=== PATIENT | female | born 1965 | race Caucasian/White ===

== ENCOUNTER 2021-09-26 09:05 | Emergency (ER) | payer SELFPAY ==
[~2021-09-26] VITALS: Ht 160 cm; Wt 79.5 kg
[2021-09-26] MEDS ORDERED: FAMOTIDINE 20 MG/2 ML VIAL IVP ONE (09:30)
[2021-09-26] MEDS ORDERED: MECLIZINE HCL 12.5 MG TABLET. PO ONE (09:30)
[2021-09-26] MEDS ORDERED: IV NORMAL SALINE 1000ML BAG 1,000 ML IV ONE (09:30)
--- NOTE | 2021-09-26 09:47 | RAD ---
Single view of the chest. 09/26/2021 9:33 AM Indication: Reason: dizziness Comparison: None Findings: There is no focal consolidation. There is no pleural effusion or pneumothorax. The cardiome diastinal silhouette and pulmonary vasculature are within normal limits. No acute osseous abnormaliti es are seen. Impression: No evidence of acute cardiopulmonary process. Electronically signed by: To Ga MD (09/26/2021 9:45 AM) [id number]
[2021-09-26 09:52] LABS: BASO % 0 % (0-3); CALCIUM 8.1 mg/dL (8.5-10.1); EOS % 0 % (0-3); GFR 56.9; HEMATOCRIT 43.1 % (36.0-47.0); HEMOGLOBIN 13.9 g/dL (12.0-15.5); LYMPH % 15 % (24-48); MEAN CORPUSCULAR HEMOGLOBIN 29 pg (25-35); MEAN CORPUSCULAR HGB CONC 32 g/dL (31-37); MEAN CORPUSCULAR VOLUME 90 fL (79-100); MONO # 0.6 x10^3/uL (0.0-1.1); MONO % 10 % (0-9); NEUT % 75 % (31-73); PLATELET COUNT 157 x10^3/uL (140-400); POTASSIUM 4.2 mmol/L (3.5-5.1); RED BLOOD COUNT 4.81 x10^6/uL (3.50-5.40); RED CELL DISTRIBUTION WIDTH 14.3 % (11.5-14.5); WHITE BLOOD COUNT 6.6 x10^3/uL (4.0-11.0)
[2021-09-26 09:58] LABS: ALBUMIN 3.1 g/dL (3.4-5.0); ALBUMIN/GLOBULIN RATIO 0.9 (1.0-1.7); MAGNESIUM 1.6 mg/dL (1.8-2.4); TOTAL BILIRUBIN 0.4 mg/dL (0.2-1.0); TOTAL PROTEIN 6.6 g/dL (6.4-8.2)
--- NOTE | 2021-09-26 10:00 | EKG ---
[facility] [address] [place] [address] Test Date: 2021-09-26 Test Time: 09:14:39 Pat Name: BEBE HILTON Department: Room: Gender: F Transition Coach: : 1965 Requested By: MARIA INES ZARATE Order Number: [id number] Reading MD: Luis Young MD Measurements Intervals [place] Rate: 74 P: 44 NV: 168 QRS: -30 QRSD: 98 T: 42 QT: 410 QTc: 461 Interpretive Statements SINUS RHYTHM CONSIDER LVH Electronically Signed On 09-30-2021 8:40:58 TINTER PHOTOGRAPH by Luis Young MD
--- NOTE | 2021-09-26 10:15 | PHYS DOC ---
Past Medical History Past Medical History: CAD Past Surgical History: Tonsillectomy Smoking Status: Current Every Day Smoker Additional Information: vapes Alcohol Use: None General Adult EDM: Chief Complaint: NEAR SYNCOPE HPI: HPI: Patient is a 56 year old female with a history of CAD and 2 stents, who presents to the ED today complaining of dizziness. Patient states she was at work, she felt dizzy and lightheaded. She states she almost passed out but did not. Denies falling, she states she did not have any breakfast this morning. Denies any chest pain or shortness of breath. She states her symptoms have actually improved in the ED. She states she has had diarrhea, nausea and vomit ing for 2 weeks. She states she has been taking Pepto-Bismol and her stools are dark. Denies any abdominal pain. Review of Systems: Review of Systems: Constitutional: Denies fever or chills. [] Eyes: Denies change in visual acuity. [] HENT: Denies nasal congestion or sore throat. [] Respiratory: Denies cough or shortness of breath. [] Cardiovascular: Denies chest pain or edema. [] GI: Reports nausea, vomiting, diarrhea, denies abdominal pain : Denies dysuria. [] Musculoskeletal: Denies back pain or joint pain. [] Integument: Denies rash. [] Neurologic: Reports dizziness, lightheadedness.. Denies headache, focal weakness or sensory changes. [] Psychiatric: Denies depression or anxiety. [] Heart Score: C/O Chest Pain: N/A Risk Factors: Risk Factors: DM, Current or recent (<one month) smoker, HTN, HLP, family history of CAD, obesity. Risk Scores: Score 0 - 3: 2.5% MACE over next 6 weeks - Discharge Home Score 4 - 6: 20.3% MACE over next 6 weeks - Admit for Clinical Observation Score 7 - 10: 72.7% MACE over next 6 weeks - Early Invasive Strategies Current Medications: Current Medications Medications (Trade) Dose Ordered Sig/Kellie Start Time Stop Time Status Last Admin Dose Admin Famotidine (Pepcid Vial) 20 mg 1X ONCE 09/26/21 09:30 2 09:31 DC 09/26/21 09:41 20 MG Meclizine HCl (Antivert) 12.5 mg 1X ONCE 09/26/21 09:30 09/26/21 09:31 DC 09/26/21 09:41 12.5 MG Sodium Chloride 1,000 ml @ 1,000 mls/hr 1X ONCE 09/26/21 09:30 09/26/21 10:29 09/26/21 09:41 1,000 MLS/HR Allergies: Allergies: Allergies Coded Allergies Type Severity Reaction Last Updated Verified codeine Allergy Intermediate "I BLEED INTERNALLY" 09/26/21 Yes Physical Exam: PE: Constitutional: Well developed, well nourished, no acute distress, non-toxic appearance. [] HENT: Normocephalic, atraumatic, bilateral external ears normal, oropharynx moist, no oral exudates, nose normal. [] Eyes: PERRLA, EOMI, conjunctiva normal, no discharge. [] Neck: Normal range of motion, no tenderness, supple, no stridor. [] Cardiovascular:Heart rate regular rhythm, no murmur [] Lungs & Thorax: Bilateral breath sounds clear to auscultation [] Abdomen: Bowel sounds normal, soft, no tenderness, no masses, no pulsatile masses. [] Skin: Warm, dry, no erythema, no rash. [] Back: No tenderness, no CVA tenderness. [] Extremities: No tenderness, no cyanosis, no clubbing, ROM intact, no edema. [] Neurologic: Alert and oriented X 3, normal motor function, normal sensory function, no focal deficits noted. Cranial nerves II through XII intact Psychologic: Affect normal, judgement normal, mood normal. [] Current Patient Data: Labs: Laboratory Tests Test 09/26/21 09:23 09/26/21 09:46 Sodium Level 142 mmol/L (136-145) Potassium Level 4.2 mmol/L (3.5-5.1) Chloride Level 104 mmol/L (98-107) Carbon Dioxide Level 28 mmol/L (21-32) Anion Gap 10 (6-14) Blood Urea Nitrogen 17 mg/dL (7-20) Creatinine 1.0 mg/dL (0.6-1.0) Estimated GFR (Cockcroft-Gault) 56.9 BUN/Creatinine Ratio 17 (6-20) Glucose Level 173 mg/dL (70-99) H Calcium Level 8.1 mg/dL (8.5-10.1) L Magnesium Level 1.6 mg/dL (1.8-2.4) L Total Bilirubin 0.4 mg/dL (0.2-1.0) Aspartate Amino Transferase (AST) 20 U/L (15-37) Alanine Aminotransferase (ALT) 35 U/L (14-59) Alkaline Phosphatase 84 U/L (46-116) Troponin I High Sensitivity 5 ng/L (4-50) NB-Jmg-C-Type Natriuretic Peptide 51 pg/mL (0-124) Total Protein 6.6 g/dL (6.4-8.2) Albumin 3.1 g/dL (3.4-5.0) L Albumin/Globulin Ratio 0.9 (1.0-1.7) L Lipase 204 U/L (73-393) Thyroid Stimulating Hormone (TSH) 2.246 uIU/mL (0.358-3.74) SARS-CoV-2 Antigen (Rapid) Negative (NEGATIVE) Laboratory Tests 09/26/21 09:23 Vital Signs: Vital Signs Date Time Temp Pulse Resp B/P (MAP) Pulse Ox O2 Delivery O2 Flow Rate FiO2 09/26/21 09:09 98.1 79 18 141/68 (92) 99 Room Air 98.1 EKG: EK interpreted by Dr. Wolfe sinus rhythm HR 74 no STEMI [address] Wolfe sinus rhythm HR 70 no STEMI Radiology/Procedures: Radiology/Procedures: []PROCEDURE: PORTABLE CHEST 1V Single view of the chest. 09/26/2021 9:33 AM Indication: Reason: dizziness Comparison: None Findings: There is no focal consolidation. There is no pleural effusion or pneumothorax. The cardiomediastinal silhouette and pulmonary vasculature are within normal limits. No acute osseous abnormalities are seen. Impression: No evidence of acute cardiopulmonary process. Electronically signed by: To Ga MD (09/26/2021 9:45 AM) [id number] DICTATED and SIGNED BY: TO GA MD DATE: 09/26/21 [id number] PROCEDURE: CT HEAD WO CONTRAST CT HEAD/BRAIN WO Date: 09/26/2021 9:55 AM Clinical Indication: dizziness Comparison: None. Technique: 5 mm axial tomographic images were obtained of the head without contrast. These were viewed on brain and bone windows. One or more of the following dose reduction techniques were utilized: Automated exposure control (AEC), Adjustment of mA and/or kV according to patient size, Use of iterative reconstruction technique such as ASiR, CT scan done according to ALARA and image gently/image wisely Findings: The brain parenchyma is normal in attenuation. No intra- or extra-axial mass or fluid collection. No acute hemorrhage. The ventricles are normal in size, shape, and morphology. The rodriguez-white matter junction is normal. The subarachnoid cisterns are patent. The visualized paranasal sinuses are normal. The visualized portions of the orbits and globes are normal. The mastoid air cells are clear. The judicial reporter topogram shows no lytic lesion or fracture. Impression: No acute intracranial process. Electronically signed by: Belem Penaloza MD (09/26/2021 10:19 AM) [id number] DICTATED and SIGNED BY: BELEM PENALOZA MD DATE: 09/26/21 [id number] 0 PROCEDURE: PORTABLE CHEST 1V Single view of the chest. 09/26/2021 9:33 AM Indication: Reason: dizziness Comparison: None Findings: There is no focal consolidation. There is no pleural effusion or pneumothorax. The cardiomediastinal silhouette and pulmonary vasculature are within normal limits. No acute osseous abnormalities are seen. Impression: No evidence of acute cardiopulmonary process. Electronically signed by: To Ga MD (09/26/2021 9:45 AM) [id number] DICTATED and SIGNED BY: TO GA MD DATE: 09/26/21 [id number] 0 Course & Med Decision Making: Course & Med Decision Making Pertinent Labs and Imaging studies reviewed. (See chart for details) This is a 56-year-old female patient presented to the ED today complaining of dizziness and lightheadedness at work in the near syncope episode. Patient also reports she has had diarrhea, vomiting, symptoms for 2 weeks. 2 EKGs were done which were negative for any acute findings. CT of the head is negative, chest xray is negative. CBC with no acute findings, CMP with glucose of 173, anion gap is normal. Magnesium 1.6, patient was given IV magnesium in the ED. UA positive for infection the patient has no urgency, frequency or dysuria. 2 high-sensitivity troponins are negative CT of the abdomen and pelvis was noted for bilateral lower lobe pneumonia otherwise no acute findings. Negative rapid Covid test, negative influenza AMB test. Patient O2 sats above 95% on room air. The rest of her vitals are benign She is requesting to go home. She states she has no dizziness. She believes she was hungry when this happened. She was discharged to home on doxycyline. F/u with PCP and business and services instructor in the course of this week Leonard Disclaimer: Leonard Disclaimer: This electronic medical record was generated, in whole or in part, using a voice recognition dictation system. Departure Departure Impression: Primary Impression: UTI (urinary tract infection) Qualified Codes: N39.0 - Urinary tract infection, site not specified Additional Impressions: Person under investigation for COVID-19 Bilateral pneumonia Qualified Codes: J18.9 - Pneumonia, unspecified organism Disposition: HOME / SELF CARE / HOMELESS Condition: STABLE Referrals: JYOTSNA CHAVEZ MD (PCP) follow up with your doctor in one week Patient Instructions: Dizziness, [id number], Urinary Tract Infection Additional Instructions: You were evaluated in the emergency room and noted to have bilateral pneumonia, urinary tract infection. We will put you on antibiotics, ensure you complete them. Follow-up with your primary care doctor in 1 week. Also follow-up with your business and services instructor. Come back to the ED at any point symptoms worsen Scripts Doxycycline Hyclate (DOXYCYCLINE HYCLATE) 100 Mg Tablet 1 TAB PO BID, #14 TAB Prov: MARIA INES ZARATE APRN 09/26/21 MARIA INES ZARATE APRN Sep 26, 2021 10:15
--- NOTE | 2021-09-26 10:21 | RAD ---
CT HEAD/BRAIN WO Date: 09/26/2021 9:55 AM Clinical Indication: dizziness Comparison: None. Technique: 5 mm axial tomographic images were obtained of the head without contrast. These were view ed on brain and bone windows. One or more of the following dose reduction techniques were utilized: A utomated exposure control (AEC), Adjustment of mA and/or kV according to patient size, Use of iterati ve reconstruction technique such as ASiR, CT scan done according to ALARA and image gently/image garcia ly Findings: The brain parenchyma is normal in attenuation. No intra- or extra-axial mass or fluid collection. No acute hemorrhage. The ventricles are normal in size, shape, and morphology. The rodriguez-white matter adolfo ction is normal. The subarachnoid cisterns are patent. The visualized paranasal sinuses are normal. The visualized portions of the orbits and globes are no rmal. The mastoid air cells are clear. The welder fitter gas topogram shows no lytic lesion or fracture. Impression: No acute intracranial process. Electronically signed by: Frederick Penaloza MD (09/26/2021 10:19 AM) [id number]
[2021-09-26] MEDS ORDERED: CONTRAST GIVEN. MC PRN (10:45)
--- NOTE | 2021-09-26 10:53 | EKG ---
[facility] [address] [place] [address] Test Date: 2021-09-26 Test Time: 10:38:08 Pat Name: BEBE HILTON Department: Room: Gender: F Mortgage Clerk: : 1965 Requested By: MARIA INES ZARATE Order Number: [id number] Reading MD: Luis Young MD Measurements Intervals [place] Rate: 70 P: 90 NV: 168 QRS: -25 QRSD: 98 T: 18 QT: 424 QTc: 461 Interpretive Statements SINUS RHYTHM CONSIDER LVH LAD Electronically Signed On 09-30-2021 8:40:46 BELT SANDER by Luis Young MD
[2021-09-26] MEDS ORDERED: IOHEXOL 300 MG/ML 100ML VIAL. IV ONE (11:00)
--- NOTE | 2021-09-26 11:08 | RAD ---
CT of the abdomen and pelvis with contrast 09/26/2021 11:01 AM Indication: Reason: diarrhea and vomiting / Comparison study: None Technique: Multidetector CT imaging of the abdomen and pelvis was performed following the administrat ion of IV contrast. Findings: There are patchy consolidations within the bilateral lower lobes and to a lesser degree the right mid dle lobe and lingula concerning for pneumonia. Some portions of this infiltrate have a somewhat nodul ar appearance. Recommend post therapeutic a 12 week follow-up CT chest. Nonspecific 4 to 5 mm hypodensity noted in the left lobe of liver. Liver is otherwise unremarkable. T he gallbladder is unremarkable. Spleen is unremarkable. Adrenal glands are unremarkable. Small cyst n oted within the left kidney. Left kidney is otherwise unremarkable. The right kidney is unremarkable. Pancreas is unremarkable. There is no evidence of bowel obstruction. No evidence of acute inflammato ry change involving visualized bowel is identified. The appendix is unremarkable in appearance. The b ladder is unremarkable in appearance. Uterus and adnexa are grossly unremarkable. No significant free fluid or free air seen in the abdomen or pelvis. No acute osseous abnormality is identified. IMPRESSION: 1. Bilateral lower lobe infiltrates, with more mild infiltrates in the right middle lobe and lingula. Findings may represent atypical or viral pneumonia. Areas of infiltrative somewhat nodular appearanc e. Recommend post therapeutic follow-up CT chest in 8-12 weeks. 2. No evidence of acute intra-abdominal abnormality CT DOSING PQRS STATEMENT: One or more of the following individualized dose reduction techniques were utilized for this examinat ion: 1. Automated exposure control 2. Adjustment of the mA and/or kV according to patient size 3. Use of iterative reconstruction technique Electronically signed by: To Ga MD (09/26/2021 11:06 AM) [id number]
[2021-09-26 11:47] LABS: AMPHETAMINE/METHAMPHETAMINE NEG (NEG); BARBITURATES NEG (NEG); BENZODIAZEPINES NEG (NEG); CANNABINOIDS NEG (NEG); COCAINE NEG (NEG); METHADONE NEG (NEG); OPIATES NEG (NEG); PHENCYCLIDINE NEG (NEG)
[2021-09-26 11:49] LABS: BILIRUBIN,URINE NEGATIVE (NEG); CLARITY,URINE CLEAR; COLOR,URINE YELLOW; NITRITE,URINE NEGATIVE (NEG); PH,URINE 6.5 (<5.0-8.0); PROTEIN,URINE NEGATIVE (NEG-TRACE); UROBILINOGEN,URINE 0.2 mg/dL (0.2 mg/dL)
[2021-09-26 11:58] LABS: RBC,URINE 0 /HPF (0-2)
[2021-09-26 11:59] LABS: BACTERIA,URINE 0 /HPF (0-FEW)
[2021-09-26] MEDS ORDERED: MAGNESIUM SULFATE 1GM 100 ML IV ONE (12:15)
[2021-09-26 13:00] LABS: FECAL OB PT NEGATIVE (NEG)
[2021-09-26] MEDS ORDERED: DOXY100T PO (14:39)
[2021-09-26 14:50] VITALS: BP 136/64
--- NOTE | 2021-09-27 09:21 | NUR ---
IP: Informed pt of positive covid test and the need to quarantine for 10 days. Pt verbalized understanding.
== END 2021-09-26 14:51 | disposition home or self-care (01) ==
LOC: ER 09:05
DX: U07.1 COVID-19 (principal); J18.9 Pneumonia, unspecified organism; N39.0 Urinary tract infection, site not specified; I25.10 Atherosclerotic heart disease of native coronary artery without angina pectoris; F17.200 Nicotine dependence, unspecified, uncomplicated; Z88.5 Allergy status to narcotic agent
CPT/HCPCS: 36415; 70450; 71045; 74177; 80053; 80307; 81001; 82274; 83690; 83735; 83880; 84443; 84484; 85025; 87086; 87426; 93005; 96361; 96365; 96375; 99285; C9803; J3475; J3490; J7030; J8597; Q9967; U0003